=== PATIENT | female | born 1960 | race Caucasian/White ===

== ENCOUNTER 2021-11-10 08:04 | Day surgery (SDC) | payer MEDICARE, MEDICAID ==
[~2021-11-10] VITALS: Ht 167.6 cm; Wt 86.2 kg
[~2021-11-10 08:04] MED LIST: CALCIUM600 M1 PO; CICLODAN EX; METFORMIN HCL1000 MG PO; PRAVASTATIN SOD20 MG PO; SODIUM BICARBI650 MG PO; TRESIBA100 UNIT/M; VITAMIN C1000 MG PO; VITAMIN D32000 UNI2 PO; VITAMIN E400 UNIT PO
[2021-11-10 10:25] VITALS: BP 110/76
== END 2021-11-10 10:40 | disposition home or self-care (01) ==
LOC: ENDO 08:04
PROVIDERS: ATTEND Surgery
PROC: 0DBN8ZX Excision of Sigmoid Colon, Via Natural or Artificial Opening Endoscopic, Diagnostic (ICD-10-PCS; principal; 2021-11-10)
DX: Z12.11 Encounter for screening for malignant neoplasm of colon (principal); K63.5 Polyp of colon; E11.9 Type 2 diabetes mellitus without complications; F17.210 Nicotine dependence, cigarettes, uncomplicated; Z79.84 Long term (current) use of oral hypoglycemic drugs; Z79.4 Long term (current) use of insulin